=== PATIENT | female | born 1960 | race Caucasian/White ===

== ENCOUNTER 2018-05-20 09:42 | Emergency (ER) | payer BC ==
[2018-05-20] MEDS ORDERED: Ibuprofen TAB* 600 MG PO ONE (10:15)
[2018-05-20 10:41] VITALS: BP 128/88
--- NOTE | 2018-05-20 12:09 | ED ---
Adult Trauma - HPI Summary HPI Summary: Patient is a 58-year-old female presenting to the ED with facial injury. Patient states she was running this morning, tripped and fell directly onto her face. She is endorsing pain to the upper lip, teeth and nose. She denies any other injuries. She states she has a slight headache, however is otherwise well. She did not take any medications PDA. She is requesting ibuprofen on arrival. - History of Current Complaint Chief Complaint: EDFacialInjury Stated Complaint: FALL FACIAL INJURY Time Seen by Provider: 05/20/18 09:57 Hx Obtained From: Patient Hx Last Menstrual Period: mirena ?: No Mechanism of Injury: Blunt Trauma Ambulatory at the Scene: Yes Onset Severity: Moderate Current Severity: None Pain Intensity: 3 Pain Scale Used: 0-10 Numeric Location: Other - face Character: Aching Aggravating Factor(s): Nothing Alleviating Factor(s): Nothing Associated Signs & Symptoms: Negative: Nausea/Vomiting, Loss of Consciousness, Dysphagia, Hemoptysis, Significant Blood Loss - Allergy/Home Medications Allergies/Adverse Reactions: Allergies Allergy/AdvReac Type Severity Reaction Status Date / Time No Known Allergies Allergy Verified 05/20/18 09:52 PMH/Surg Hx/FS Hx/Imm Hx Previously Healthy: Yes Endocrine/Hematology History: Denies: Hx Diabetes Cardiovascular History: Denies: Hx Hypertension, Hx Pacemaker/ICD History: Denies: Hx Dialysis, Hx Renal Disease Musculoskeletal History: Denies: Hx Rheumatoid Arthritis, Hx Osteoporosis, Hx Scoliosis Sensory History: Denies: Hx Contacts or Glasses, Hx Hearing Aid Opthamlomology History: Denies: Hx Contacts or Glasses Neurological History: Denies: Hx Headaches, Other Neuro Impairments/Disorders Psychiatric History: Reports: Hx Depression - ON MEDICATION Denies: Hx Panic Disorder - Cancer History Cancer Type, Location and Year: SKIN CA Hx Chemotherapy: No Hx Radiation Therapy: No - Surgical History Surgery Procedure, Year, and Place: [place] [facility] [place] [facility] [place] Breast Augmentation Hx Anesthesia Reactions: Yes - EXTREMELY NAUSEOUS - Immunization History Hx Pertussis Vaccination: No Immunizations Up to Date: Yes Infectious Disease History: No Infectious Disease History: Denies: Traveled Outside the [place] in Last 30 Days - Social History Occupation: Employed Full-time Lives: With Family Alcohol Use: None Hx Substance Use: No Substance Use Type: Reports: None Hx Tobacco Use: Yes Smoking Status (MU): Former Smoker Type: Cigarettes Review of Systems Constitutional: Negative Negative: Fever, Chills, Fatigue, Skin Diaphoresis Positive: Dental Pain - right front tooth #8 is loose Negative: Palpitations, Chest Pain Negative: Shortness Of Breath, Cough Genitourinary: Negative Positive: no symptoms reported, see HPI Negative: Arthralgia Positive: Other - laceration to the bridge of the nose Positive: Headache All Other Systems Reviewed And Are Negative: Yes Physical Exam Triage Information Reviewed: Yes Vital Signs On Initial Exam: Initial Vitals Temp Pulse Resp BP Pulse Ox 97.5 F 50 16 136/94 100 05/20/18 09:48 05/20/18 09:48 05/20/18 09:48 05/20/18 09:48 05/20/18 09:48 Vital Signs Reviewed: Yes Appearance: Positive: Well-Nourished Skin: Positive: Warm, Skin Color Reflects Adequate Perfusion Head/Face: Positive: Normal Head/Face Inspection Eyes: Positive: EOMI, Conjunctiva Clear Dental: Positive: Other - right front tooth #8 is loose - still intact Neck: Positive: No Lymphadenopathy Respiratory/Lung Sounds: Positive: Clear to Auscultation, Breath Sounds Present Cardiovascular: Positive: RRR, Pulses are Symmetrical in both Upper and Lower Extremities Musculoskeletal: Positive: Strength/ROM Intact Neurological: Positive: Sensory/Motor Intact, Alert, Oriented to Person Place, Time Psychiatric: Positive: Normal, Affect/Mood Appropriate Diagnostics - Vital Signs Vital Signs Temp Pulse Resp BP Pulse Ox 05/20/18 10:40 98 F 52 12 128/88 100 05/20/18 09:48 97.5 F 50 16 136/94 100 - Laboratory Lab Statement: Any lab studies that have been ordered have been reviewed, and results considered in the medical decision making process. Adult Trauma Course/Dx - Course Course Of Treatment: On arrival into the ED, patient is evaluated for trauma. Upper lip is swollen, and right front tooth, #8 is loose. Bridge of nose with small abrasion without laceration. CT maxillofacial and brain obtained all which was within normal limits. Ibuprofen 600mh given while in the ED. While in the ED, patient was able to call her dentist who states he can get her in within the next 1 hour. Patient is discharged into the care of her dentist. She is stable upon discharge and offers no complaints. - Diagnoses Differential Diagnosis/HQI/PQRI: Positive: Abrasion(s), Fracture Provider Diagnoses: Avulsed tooth Discharge - Sign-Out/Discharge Documenting (check all that apply): Patient Departure Patient Received Moderate/Deep Sedation with Procedure: No - Discharge Plan Condition: Stable Disposition: HOME Referrals: Christina Ponce MD [Primary Care Provider] - Additional Instructions: go directly to your dentist office - Billing Disposition and Condition Condition: STABLE Disposition: Home
== END 2018-05-20 10:40 | disposition home or self-care (01) ==
LOC: ED 09:42
DX: S02.5XXA Fracture of tooth (traumatic), initial encounter for closed fracture (principal); F32.9 Major depressive disorder, single episode, unspecified; Z85.828 Personal history of other malignant neoplasm of skin; W18.09XA Striking against other object with subsequent fall, initial encounter; Y93.02 Activity, running; Y92.9 Unspecified place or not applicable; Z87.891 Personal history of nicotine dependence
CPT/HCPCS: 70450; 70486; 99282; A9270-GY